=== PATIENT | female | born 1980 | race Caucasian/White ===

== ENCOUNTER 2019-08-28 18:56 | Inpatient (IN) ==
[2019-08-28 21:41] LABS: BASO# 0.03 X1000 (0.0-0.2); BASO% 0.3 % (0.0-0.8); EOS# 0.13 X1000 (0.0-0.7); EOS% 1.2 % (0.0-10.0); HEMATOCRIT 35.2 % (37.0-47.0); HEMOGLOBIN 11.4 g/dL (12.0-16.0); IMM GRAN# 0.05 X1000 (0.0-0.04); IMM GRAN% 0.5 % (0.0-0.5); LYMPH# 1.89 X1000 (1.2-3.4); LYMPH% 17.8 % (20.5-51.1); MCH 28.8 PG (27-31); MCHC 32.4 g/dL (33-37); MCV 88.9 FL (81-99); MONO# 0.64 X1000 (0.11-0.59); NEUT# 7.87 X1000 (1.4-6.5); NEUT% 74.2 % (42.2-75.2); PLT 305 X1000 (130-400); RBC 3.96 XMIL (4.2-5.4); WBC 10.61 X1000 (4.8-10.8)
[2019-08-29 00:26] LABS: URINE SOURCE VOIDED
[2019-08-29 00:38] LABS: UR AMPHETAMINES QUAL NONE DETECTED (NONE DETECT); UR BARBITUATES QUAL NONE DETECTED (NONE DETECT); UR BENZODIAZEPIN QUAL NONE DETECTED (NONE DETECT); UR CANNABINOIDS QUAL NONE DETECTED (NONE DETECT); UR COCAINE QUAL NONE DETECTED (NONE DETECT); UR METHADONE QUAL NONE DETECTED (NONE DETECT); UR OPIATES QUAL NONE DETECTED (NONE DETECT); UR OXYCODONE QUAL NONE DETECTED (NONE DETECT); UR PCP QUAL NONE DETECTED (NONE DETECT)
[2019-08-29 01:18] LABS: BILIRUBIN URINE NEGATIVE (NEGATIVE); BLOOD URINE NEGATIVE (NEGATIVE); COLOR YELLOW; GLUCOSE URINE NEGATIVE (NEGATIVE); KETONE URINE NEGATIVE (NEGATIVE); LEUKOCYTES URINE LARGE (NEGATIVE); NITRITE URINE NEGATIVE (NEGATIVE); PH URINE 6.5; PROTEIN URINE TRACE mg/dL (NEGATIVE); SP GRAVITY URINE 1.018; TURBIDITY URINE HAZY (CLEAR); UROBILINOGEN URINE NORMAL (NORMAL)
[2019-08-29 06:32] LABS: BE -10.5 mmoll (-3.0-3.0); BLOOD TYPE ARTERIAL; HCO3-(ACT) 13.7 mmoll (20.0-26.0); METHB 1.5 % (0.0-1.5); O2(CT) 2.3 mL/dL (15.0-23.0); O2HB 9.4 % (95.0-99.0); PCO2(98.6) 72 mmHg (35-45); PO2(98.6) 7 mmHg (60-100); SAMPLE BLOOD; SAO2 9.7 % (95.0-100.0); THB 17.3 g/dL (11.5-17.4); pH(98.6) 7.08 (7.35-7.45)
[2019-08-30 06:22] LABS: HEMATOCRIT 27.5 % (37.0-47.0); HEMOGLOBIN 8.8 g/dL (12.0-16.0); MCH 29.9 PG (27-31); MCV 93.5 FL (81-99); MPV 11.7 FL (7.4-10.4); RBC 2.94 XMIL (4.2-5.4); RDW 15.7 % (11.5-14.5); WBC 10.95 X1000 (4.8-10.8)
[2019-08-31 07:53] VITALS: BP 117/72
== END 2019-08-31 09:26 | disposition home or self-care (01) | DRG 787 ==
LOC: LD 18:56
PROVIDERS: ADMIT Obstetrics & Gynecology; ATTEND Obstetrics & Gynecology